=== PATIENT | female | born 1960 | race Caucasian/White ===

== ENCOUNTER 2019-05-13 10:00 | Emergency (ER) | payer BC ==
[~2019-05-13] VITALS: Ht 180.3 cm; Wt 81.6 kg
[2019-05-13 10:00] VITALS: BP_SYST 117
--- NOTE | 2019-05-13 10:00 | NUR ---
BROUGHT BACK TO BED #8 AND TRIAGED. REPORT GIVEN TO KASSIDY
--- NOTE | 2019-05-13 10:12 | NUR ---
KRISTI Kiran at bedside examining patient.
--- NOTE | 2019-05-13 10:15 | NUR ---
Pt complains of pain to head s/p trip over dog and woke up with dog licking face. Pt complains of pain to bilateral knees. Small laceration noted to forehead. Denies CP, SOB or blurred vision
--- NOTE | 2019-05-13 10:17 | NUR ---
Pt went to CT in stable condition
--- NOTE | 2019-05-13 10:39 | NUR ---
Pt returned from CT in stable condition
[2019-05-13 11:03] VITALS: BP_SYST 117
--- NOTE | 2019-05-13 11:03 | NUR ---
Patient given written and verbal discharge instructions and verbalizes understanding. ER MD discussed with patient the results and treatment provided. Patient in stable condition. ID arm band removed. No Rx given. Patient educated on pain management and to follow up with PMD. Pain Scale 3. Opportunity for questions provided and answered.
--- NOTE | 2019-05-13 11:05 | NUR ---
Dr Head at bedside applying dermabond to forehead. Pt tolerated well
== END 2019-05-13 11:03 | disposition home or self-care (01) ==
LOC: SED 10:00
DX: S01.81XA Laceration without foreign body of other part of head, initial encounter (principal); W10.1XXA Fall (on)(from) sidewalk curb, initial encounter; Y93.89 Activity, other specified; Y92.488 Other paved roadways as the place of occurrence of the external cause; Y99.8 Other external cause status
CPT/HCPCS: 70450-TC; 99284

== ENCOUNTER 2019-11-23 09:01 | Emergency (ER) | payer BC, OTHER ==
[~2019-11-23] VITALS: Ht 177.8 cm; Wt 84.4 kg
--- NOTE | 2019-11-23 09:10 | NUR ---
Patient to ER bed 4 to gown for evaluation. Side rails up.
[2019-11-23 09:14] VITALS: BP_SYST 122
--- NOTE | 2019-11-23 09:15 | NUR ---
PT CAME TO ER FOR HEAD LAC AFTER FALLING. SHE STATES SHE NEEDS TO HAVE HIP REPLACEMENT AND SHOULD BE USING WALKER BUT DOES NOT HAVE ONE
--- NOTE | 2019-11-23 09:30 | NUR ---
ER at bedside examining patient.
--- NOTE | 2019-11-23 10:20 | NUR ---
Patient given written and verbal discharge instructions and verbalizes understanding. ER MD discussed with patient the results and treatment provided. Patient in stable condition. ID arm band removed. Rx of WALKER given. Patient educated on pain management and to follow up with PMD. Pain Scale 0. Opportunity for questions provided and answered. Medication side effect fact sheet provided.
== END 2019-11-23 10:20 | disposition home or self-care (01) ==
LOC: SED 09:01
DX: S01.81XA Laceration without foreign body of other part of head, initial encounter (principal); W18.39XA Other fall on same level, initial encounter; Y93.89 Activity, other specified; Y92.89 Other specified places as the place of occurrence of the external cause; Y99.8 Other external cause status
CPT/HCPCS: 99282

== ENCOUNTER 2020-03-26 09:59 | Emergency (ER) | payer OTHER ==
[~2020-03-26] VITALS: Ht 180.3 cm; Wt 84.8 kg
[2020-03-26 10:30] VITALS: BP_SYST 148
--- NOTE | 2020-03-26 10:30 | NUR ---
Patient triaged and placed in waiting room. VSS and patient appears in no acute distress at this time. Accompanied by self, awaiting available bed, and MD notified of need for MSE.
--- NOTE | 2020-03-26 11:21 | NUR ---
Patient to ER bed H1 to gown for evaluation. Side rails up. Report given to BLAS Bolanos.
[2020-03-26] MEDS ORDERED: MORPHINE 4 MG/ML INJ. SYRINGE IM ONE (12:00)
--- NOTE | 2020-03-26 12:05 | NUR ---
SWELLING AND PAIN RT LOWER JAW, PT C/O POOR DENTAL CARE, MULTIPL CARIES. ALERT, CALM, RESP UNLABORED, DENIES FEVER/CHILLS
--- NOTE | 2020-03-26 12:05 | NUR ---
DR MONZON IN TO ASSESS
[2020-03-26 12:10] VITALS: BP_SYST 136
--- NOTE | 2020-03-26 12:13 | NUR ---
Patient given written and verbal discharge instructions and verbalizes understanding. ER MD discussed with patient the results and treatment provided. Patient in stable condition. ID arm band removed. Rx of given. Patient educated on pain management and to follow up with PMD. Pain Scale 4/10 Opportunity for questions provided and answered. Medication side effect fact sheet provided.
== END 2020-03-26 12:10 | disposition home or self-care (01) ==
LOC: SED 09:59
DX: K04.7 Periapical abscess without sinus (principal)
CPT/HCPCS: 96372; 99283; J2270

== ENCOUNTER 2020-10-22 11:51 | Emergency (ER) | payer SELFPAY ==
[~2020-10-22] VITALS: Ht 180.3 cm; Wt 56.7 kg
[2020-10-22 12:06] VITALS: BP_SYST 124
[2020-10-22] MEDS ORDERED: LORazepam 1 MG TABLET PO ONE (12:30)
[2020-10-22] MEDS ORDERED: HYDROcodone/ACETAMIN 10-325 MG TAB PO ONE (12:30)
[2020-10-22] MEDS ORDERED: LORazepam 1 MG TABLET ONE (12:34)
[2020-10-22 13:13] VITALS: BP_SYST 142
== END 2020-10-22 13:14 | disposition home or self-care (01) ==
LOC: SED 11:51
DX: F13.239 Sedative, hypnotic or anxiolytic dependence with withdrawal, unspecified (principal); F11.20 Opioid dependence, uncomplicated
CPT/HCPCS: 93005; 99283

== ENCOUNTER 2022-02-01 17:20 | Emergency (ER) | payer MEDICAID ==
[~2022-02-01] VITALS: Ht 177.8 cm; Wt 80.7 kg
[2022-02-01 17:59] VITALS: BP_SYST 148
[2022-02-01 22:05] VITALS: BP_SYST 159
== END 2022-02-01 22:28 | disposition left against medical advice (07) ==
LOC: SED 17:20
DX: S09.90XA Unspecified injury of head, initial encounter (principal); Z53.21 Procedure and treatment not carried out due to patient leaving prior to being seen by health care provider; W18.30XA Fall on same level, unspecified, initial encounter; Y93.89 Activity, other specified; Y92.89 Other specified places as the place of occurrence of the external cause; Y99.8 Other external cause status
CPT/HCPCS: 70450-TC; 72125-TC; 76376

== ENCOUNTER 2022-09-18 16:21 | Emergency (ER) | payer OTHER, MEDICAID ==
[~2022-09-18] VITALS: Ht 180.3 cm; Wt 80.7 kg
[2022-09-18 16:28] VITALS: BP_SYST 150
[2022-09-18 17:11] LABS: EOSINOPHILS # (AUTO) 0.1 K/uL (0.0-0.4); HEMOGLOBIN 10.2 g/dL (12.0-16.0)
[2022-09-18 17:31] LABS: BASOPHILS % (AUTO) 0.5 % (0.0-2.0); EOSINOPHILS % (AUTO) 1.4 % (0.0-4.0); HEMATOCRIT 29.6 % (36-48); LYMPHOCYTES # (AUTO) 1.2 K/uL (1.0-5.5); LYMPHOCYTES % (AUTO) 16.9 % (20.5-51.5); MEAN CORPUSCULAR HEMOGLOBIN 45 pg (27-31); MEAN CORPUSCULAR HGB CONC 34 % (32-36); MEAN CORPUSCULAR VOLUME 131 fL (79.0-98.0); MONOCYTES # (AUTO) 0.7 K/uL (0.0-1.0); MONOCYTES % (AUTO) 9.4 % (1.7-9.3); NEUTROPHILS % (AUTO) 71.8 % (40.0-70.0); PLATELET COUNT (AUTO) 232 K/uL (130-430); RED BLOOD CELL COUNT(AUTO) 2.25 MIL/uL (4.2-6.2); RED CELL DISTRIBUTION WIDTH 14.9 % (9.0-15.0)
[2022-09-18 17:39] LABS: ANION GAP 9 (5-15); CALCIUM 8.9 mg/dL (8.4-11.0); CHLORIDE 107 mmol/L (98-107); CREATININE 0.73 mg/dL (0.55-1.30); GLUCOSE 103 mg/dL (70-99); UREA NITROGEN, BLOOD 12 mg/dL (8-21)
[2022-09-18 17:42] LABS: ALANINE AMINOTRANSFERASE 17 U/L (12-78); AMYLASE 28 U/L (0-100); ASPARTATE AMINOTRANSFERASE 34 U/L (10-37); LIPASE 190 U/L (73-393); TOTAL BILIRUBIN 0.7 mg/dL (0.0-1.0)
[2022-09-18 17:52] LABS: GFR AFRICAN AMERICAN 104 mL/min (>90)
[2022-09-18 18:02] LABS: ACETONE, SERUM NEGATIVE (NEGATIVE)
--- NOTE | 2022-09-18 18:09 | NUR ---
PT WAS W/C'D TO ROOM 3. WITH CO ABD PAIN X 3 DAYS WITH N/V/D. PT WAS A/OX4, SPEAKS FULL SENTENCES, FOLLOWS COMMAND, JESSICA WATTERS AND DIZZINESS. NO SOB. BREATHING EVEN. PT WAS DONE THE CT.
[2022-09-18] MEDS ORDERED: HYDR-3917 PO (18:46)
[2022-09-18] MEDS ORDERED: OMEP20CA15 PO (18:46)
[2022-09-18] MEDS ORDERED: IBUP-1969 PO (18:46)
[2022-09-18 19:03] VITALS: BP_SYST 124
--- NOTE | 2022-09-18 19:05 | NUR ---
Patient given written and verbal discharge instructions and verbalizes understanding. ER MD discussed with patient the results and treatment provided. Patient in stable condition. ID arm band removed. IV catheter removed intact and dressing applied, no active bleeding. Rx of LORAZAPAM given. Patient educated on pain management and to follow up with PMD. Pain Scale 0. Opportunity for questions provided and answered. Medication side effect fact sheet provided.
== END 2022-09-18 19:03 | disposition home or self-care (01) ==
LOC: SED 16:21
DX: R10.31 Right lower quadrant pain (principal); R11.10 Vomiting, unspecified; R19.7 Diarrhea, unspecified; Z79.899 Other long term (current) drug therapy
CPT/HCPCS: 36415; 76376; 80053; 82009; 82150; 83605; 83690; 85025; 86140; 99284

== ENCOUNTER 2024-04-25 09:45 | Emergency (ER) | payer BC, MEDICAID ==
[~2024-04-25] VITALS: Ht 152.4 cm; Wt 49.9 kg
[~2024-04-25 09:45] MED LIST: DOXY100C PO; FLUC200T PO; HYDR-3917 PO; IBUP-1969 PO; OMEP20CA15 PO
[2024-04-25 10:03] VITALS: BP_SYST 137; PULSE 107; RESP 16; TEMP 97.1; O2SAT 96
[2024-04-25] MEDS: HYDROcodone/ACETAMIN 5-325 MG TAB (NORCO/ VICODIN) PO ONE (11:45)
[2024-04-25] MEDS ORDERED: METH-776 PO (12:09)
[2024-04-25 12:32] VITALS: BP_SYST 137; PULSE 107; RESP 16; TEMP 97.1; O2SAT 96
== END 2024-04-25 12:32 | disposition home or self-care (01) ==
LOC: SED 09:45
DX: S09.90XA Unspecified injury of head, initial encounter (principal); M10.9 Gout, unspecified; W01.0XXA Fall on same level from slipping, tripping and stumbling without subsequent striking against object, initial encounter; Y93.89 Activity, other specified; Y92.89 Other specified places as the place of occurrence of the external cause; Y99.8 Other external cause status
CPT/HCPCS: 36415; 70450-TC; 84550; 99284

== ENCOUNTER 2024-05-18 21:49 | Emergency (ER) | payer BC, MEDICAID ==
[~2024-05-18] VITALS: Ht 180.3 cm; Wt 81.6 kg
[~2024-05-18 21:49] MED LIST changes: +METH-776 PO
[2024-05-18 21:57] VITALS: BP_SYST 143; PULSE 136; RESP 20; TEMP 97.3; O2SAT 96
[2024-05-18 23:13] LABS: BASOPHILS # (AUTO) 0.2 K/uL (0.0-0.2); BASOPHILS % (AUTO) 1.7 % (0.0-2.0); EOSINOPHILS # (AUTO) 0.1 K/uL (0.0-0.4); EOSINOPHILS % (AUTO) 0.7 % (0.0-4.0); HEMOGLOBIN 12.2 g/dL (12.0-16.0); LYMPHOCYTES # (AUTO) 0.6 K/uL (1.0-5.5); LYMPHOCYTES % (AUTO) 6.3 % (20.5-51.5); MEAN CORPUSCULAR HEMOGLOBIN 34 pg (27-31); MEAN CORPUSCULAR HGB CONC 34 % (32-36); MEAN CORPUSCULAR VOLUME 101 fL (79.0-98.0); MONOCYTES # (AUTO) 0.7 K/uL (0.0-1.0); MONOCYTES % (AUTO) 7.1 % (1.7-9.3); NEUTROPHILS # (AUTO) 8.2 K/uL (1.8-7.7); NEUTROPHILS % (AUTO) 84.2 % (40.0-70.0); PLATELET COUNT (AUTO) 287 K/uL (130-430); RED BLOOD CELL COUNT(AUTO) 3.58 MIL/uL (4.2-6.2); RED CELL DISTRIBUTION WIDTH 26.2 % (9.0-15.0); WHITE BLOOD COUNT (AUTO) 9.7 K/uL (4.8-10.8)
[2024-05-18 23:23] LABS: ALANINE AMINOTRANSFERASE 11 U/L (12-78); ALBUMIN 3.2 g/dL (3.4-4.8); ANION GAP 12 (5-15); ASPARTATE AMINOTRANSFERASE 31 U/L (10-37); CALCIUM 8.6 mg/dL (8.4-11.0); CARBON DIOXIDE 25 mmol/L (23-29); CHLORIDE 104 mmol/L (98-107); CREATININE 0.83 mg/dL (0.55-1.30); GFR AFRICAN AMERICAN 89 mL/min (>90); GFR NON AFRICAN-AMERICAN 74 mL/min (>90); GLUCOSE 103 mg/dL (74-106); POTASSIUM 3.8 mmol/L (3.5-5.1); SODIUM SERUM 141 mmol/L (136-145); TOTAL PROTEIN, SERUM 6.7 g/dL (6.4-8.3); UREA NITROGEN, BLOOD 10 mg/dL (8-21)
[2024-05-18 23:25] LABS: BILIRUBIN,DIRECT 0.3 mg/dL (0.0-0.3)
[2024-05-19 00:21] LABS: BILIRUBIN,URINE NEGATIVE (NEGATIVE); COLOR,URINE YELLOW (YELLOW); GLUCOSE,URINE NEGATIVE (NEGATIVE); KETONES,URINE 1+ (NEGATIVE); LEUKOCYTE ESTERASE ,URINE 2+ (NEGATIVE); NITRITE, URINE POSITIVE (NEGATIVE); PROTEIN URINE 1+ (NEGATIVE); UROBILINOGEN,URINE 0.2 (0.2-1.0)
[2024-05-19 00:29] LABS: BLOOD, URINE TRACE (NEGATIVE); CLARITY/URINE CLOUDY (CLEAR)
[2024-05-19 00:38] LABS: BACTERIA,URINE MANY /HPF (None Seen); WBC,URINE >100 /HPF (0-3)
[2024-05-19] MEDS: NACL 0.9% 1,000 ML IV ONE (01:55)
[2024-05-19] MEDS: cefTRIAXone 1 GM IVPB PREMIX 50 ML IV ONE (01:55)
[2024-05-19] MEDS ORDERED: NITR-85 PO (02:47)
[2024-05-19 02:55] VITALS: BP_SYST 143; PULSE 136; RESP 20; TEMP 97.3; O2SAT 96
== END 2024-05-19 02:55 | disposition home or self-care (01) ==
LOC: SED 21:49
DX: N39.0 Urinary tract infection, site not specified (principal); R53.1 Weakness; R00.2 Palpitations; R50.9 Fever, unspecified; R00.0 Tachycardia, unspecified; Z79.899 Other long term (current) drug therapy; Z79.2 Long term (current) use of antibiotics
CPT/HCPCS: 99284; 71045; 80076; 80048; 81000; 81001; 83880; 85025; 85379; 87040; 87086; 84484; 36415; 83605; 96365; 81015; J0696; 87186; 93005